=== PATIENT | male | born 1975 | race Caucasian/White ===

== ENCOUNTER 2020-07-03 10:44 | Outpatient (CLI) | payer BC, SELFPAY ==
--- NOTE | 2020-07-03 09:59 | DI.RAD_ITS ---
EXAM: XR SHOULDER RT COMPLETE 2+V CLINICAL HISTORY: RT SHOULDER PAIN, M25.511. TECHNIQUE: 2D digital imaging was performed. COMPARISON: No exams were available for comparison FINDINGS: BONES: No acute fracture is present. No bony destructive lesion is seen. JOINTS: Mild degenerative changes are seen at the acromioclavicular joint. The glenohumeral joint is well maintained. SOFT TISSUE: Normal. IMPRESSION: Mild degenerative changes of the right AC joint. DATA REPOSITORY: RADIATION DOSE DELIVERED:
== END 2020-07-03 11:04 ==
PROVIDERS: PCP Family Medicine; Visit Provider Physician Assistant
DX: M19.011 Primary osteoarthritis, right shoulder (principal)
CPT/HCPCS: 73030

== ENCOUNTER 2020-07-03 18:48 | Outpatient (REF) | payer BC, SELFPAY ==
[2020-07-03 19:11] LABS: ALT 102 U/L (16-63); AST 57 U/L (15-37); Albumin 4.1 g/dL (3.4-5.0); Alkaline Phosphatase 95 U/L (46-116); Anion Gap 7.9 mmol/L (3-11); BUN 13 mg/dL (7-18); Bilirubin, Total 0.2 mg/dL (0.2-1.0); CO2 29.1 mmol/L (21.0-32.0); CREATININE 0.85 mg/dL (0.70-1.30); Calcium 9.3 mg/dL (8.5-10.1); Calculated LDL 126 mg/dL (<100); Chloride 104 mmol/L (98-107); Cholesterol 200 mg/dL (<200); Glucose 86 mg/dL (74-106); HDL Cholesterol 58 mg/dL (40-60); Potassium 3.9 mmol/L (3.5-5.1); Sodium 141 mmol/L (136-145); Total Protein 8.2 g/dL (6.4-8.2); Triglyceride 82 mg/dL (<150)
[2020-07-03 20:53] LABS: COMMENT (LAB VIEW ONLY) 125.82 mg/dL; Microalb ug/mg Crea 12.7 ug/mg Cr
== END 2020-07-03 19:08 ==
LOC: NCHCN 18:48
PROVIDERS: PCP Family Medicine; Visit Provider Physician Assistant
DX: E10.9 Type 1 diabetes mellitus without complications (principal)
CPT/HCPCS: 80053; 80061; 82043; 82570